=== PATIENT | female | born 1985 | race Caucasian/White ===

== ENCOUNTER 2017-11-16 07:49 | Outpatient (CLI) | payer BC ==
--- NOTE | 2017-11-16 15:38 | ULT ---
RIGHT UPPER QUADRANT ULTRASOUND: Date: 11/16/17 HISTORY: Right upper quadrant abdominal pain. COMPARISON: None available. FINDINGS: The liver is enlarged in craniocaudal dimensions, measuring 18.5 cm in length. There is mild increase d echogenicity of the liver relative to the right kidney suggesting mild fatty infiltration. No focal hepatic lesion is seen. Visualized portions of the pancreas, visualized portions of the IVC, gallbladder, and right kidney de monstrate a normal sonographic appearance. The right kidney measures 10.1 cm in length. The common du ct measures 0.3 cm in diameter, which is within normal limits. IMPRESSION: 1. Mild hepatomegaly with mild fatty infiltration of the liver. 2. No gallbladder calculi are seen, and the common duct is normal in caliber. POS: [facility]
== END 2017-11-16 07:50 | disposition home or self-care (01) ==
LOC: SCSULT 07:49
PROVIDERS: ATTEND Family Medicine
DX: R10.9 Unspecified abdominal pain (principal); K76.0 Fatty (change of) liver, not elsewhere classified
CPT/HCPCS: 76705

== ENCOUNTER 2018-04-22 07:52 | Outpatient (CLI) | payer BC ==
--- NOTE | 2018-04-22 10:30 | MRI ---
MRI THORACIC SPINE WITH AND WITHOUT CONTRAST: HISTORY: Arm numbness. COMPARISON: None. FINDINGS: Aortic contour is nonaneurysmal. No retroperitoneal adenopathy. No pleural effusion is appreciated. No abnormal renal enhancing mass. There is no acute fracture or malalignment of the thoracic spine. Incidental note is made of a heman gioma within the T5 vertebral body. No abnormal enhancement of the thoracic cord. The paraspinal musculature is symmetric. No abnormal enhancement. No posterior mediastinal mass. No paraspinal mass. No neural foraminal or spinal canal narrowing of the thoracic spine. No evidence for facet joint capsular injury. No interspinous, supraspinous, or paraspinous ligamento us injury. No prevertebral soft tissue edema. IMPRESSION: Normal examination. POS: [facility]
--- NOTE | 2018-04-22 11:52 | MRI ---
MRI CERVICAL SPINE WITH AND WITHOUT CONTRAST: HISTORY: Chronic numbness and tingling in the hand and fingers of the left upper extremity, worsened x2 months . Right hand numbness and tingling. Pain. COMPARISON: None. TECHNIQUE: An MRI of the cervical spine is performed with and without intravenous Gadolinium administration. Mu ltisequential, multiplanar imaging is performed. FINDINGS: Appropriate T1 marrow signal intensity of the cervical vertebrae. Cervical spine vertebral body heig ht is maintained. There is no STIR hyperintensity to suggest vertebral body fracture or ligamentous injury. There is no abnormal enhancement of the vertebral bodies. The visualized brain parenchyma, cervicomedullary junction, cervical cord, and upper thoracic cord garrett ve normal size and signal intensity. No cord malacia. No cord expansion. No T2 hyperintensity in t he cord. No evidence of abnormal enhancement of the visualized spinal cord and brain parenchymal str uctures. C2-C3: No significant central canal stenosis or foraminal narrowing. C3-C4: Minimal central disk bulge. No significant central canal stenosis or foraminal narrowing. C4-C5: No significant central canal stenosis or foraminal narrowing. C5-C6: Right paracentral disk osteophyte complex abuts the thecal sac. Mild central canal stenosis. The foramina are patent. C6-C7: No significant central canal stenosis or foraminal narrowing. C7-T1: No significant central canal stenosis or foraminal narrowing. IMPRESSION: 1. No significant central canal stenosis or foraminal narrowing. 2. No evidence of abnormal cord signal intensity or enhancement. POS: [facility]
== END 2018-04-22 07:53 | disposition home or self-care (01) ==
LOC: SCSMRI 07:52
PROVIDERS: ATTEND Family Medicine
DX: M54.2 Cervicalgia (principal); R20.0 Anesthesia of skin
CPT/HCPCS: 72156; 72157

== ENCOUNTER 2019-03-15 08:30 | Outpatient (CLI) | payer BC | END 2019-03-15 08:31 | disposition home or self-care (01) | LOC: CTENTCT 08:30 | PROVIDERS: ATTEND Student in an Organized Health Care Education/Training Program | DX: J32.9 Chronic sinusitis, unspecified (principal) | CPT/HCPCS: 70486 ==

== ENCOUNTER 2021-12-24 18:00 | Outpatient (CLI) | payer BC | END 2021-12-24 18:01 | disposition home or self-care (01) | LOC: SLEEPLAB 18:00 | PROVIDERS: ATTEND Student in an Organized Health Care Education/Training Program | DX: G47.33 Obstructive sleep apnea (adult) (pediatric) (principal); R53.83 Other fatigue; F41.8 Other specified anxiety disorders; E66.9 Obesity, unspecified; G47.00 Insomnia, unspecified; Z68.34 Body mass index [BMI] 34.0-34.9, adult | CPT/HCPCS: 95800 ==